=== PATIENT | male | born 1965 | race Two or more races ===

== ENCOUNTER → 2024-05-31 | Outpatient (BNVA) | payer OTHER, MEDICAID, SELFPAY | END | disposition home or self-care (01) | PROVIDERS: PCP Family Medicine; Referring Provider Family Medicine; Visit Provider Urology | DX: N40.1 Benign prostatic hyperplasia with lower urinary tract symptoms (principal); N13.8 Other obstructive and reflux uropathy; N32.81 Overactive bladder; E66.9 Obesity, unspecified; Z68.21 Body mass index [BMI] 21.0-21.9, adult | CPT/HCPCS: 81003; 99212; G0463 ==

== ENCOUNTER → 2024-10-06 | Outpatient (BNVA) | payer OTHER, MEDICAID, SELFPAY | END | disposition home or self-care (01) | PROVIDERS: PCP Family Medicine; Referring Provider Family Medicine; Visit Provider Urology | DX: N40.1 Benign prostatic hyperplasia with lower urinary tract symptoms (principal); R39.12 Poor urinary stream | CPT/HCPCS: 51741; 51798 ==

== ENCOUNTER → 2024-12-20 | Outpatient (BNVA) | payer OTHER, MEDICAID, SELFPAY | END | disposition home or self-care (01) | PROVIDERS: PCP Family Medicine; Referring Provider Family Medicine; Visit Provider Urology | DX: N40.1 Benign prostatic hyperplasia with lower urinary tract symptoms (principal); N13.8 Other obstructive and reflux uropathy; R39.198 Other difficulties with micturition | CPT/HCPCS: 76872 ==

== ENCOUNTER → 2025-05-01 | Outpatient (BNVA) | payer OTHER, MEDICAID, SELFPAY | END | disposition home or self-care (01) | PROVIDERS: PCP Family Medicine; Referring Provider Family Medicine; Visit Provider Urology | DX: N32.89 Other specified disorders of bladder (principal); N32.3 Diverticulum of bladder; N40.1 Benign prostatic hyperplasia with lower urinary tract symptoms; N13.8 Other obstructive and reflux uropathy | CPT/HCPCS: 52000; 81003; 96372; A4217; A4649; C1894; J1580; A9270 ==

== ENCOUNTER 2025-05-04 07:50 | Day surgery (SDC) | payer OTHER, MEDICAID, SELFPAY ==
[2025-05-03 10:28] VITALS: BMI 21.4
[2025-05-04] VITALS (8 sets, daily range): BP systolic 91–121; BP diastolic 48–68; PULSE 60–82; RESP 12–19; TEMP 36.4–36.5; O2SAT 99–100; BMI 21.5
[2025-05-04] MEDS: RINGERS LACTATED 500 ML 500 ML 20 ML IV (10:03)
--- NOTE | 2025-05-04 10:04 | SUR.OPER ---
0952 Pt brought into room-states needs to urinate. Attempted to walk pt to BR-very unstable. Urinal given. Pt voided.
[2025-05-04] MEDS: MIDAZOLAM INJ 1 MG/ML VIAL 2 ML (ASD USE ONLY) 2 MG IVP (10:06)
[2025-05-04] MEDS: fentaNYL CIT INJ 50 mCg/ML AMP 2ML (ASD USE ONLY) IVP (10:06)
--- NOTE | 2025-05-04 10:38 | SUR.PHASEII ---
1015 PATIENT INTO RECOVERY ROOM WITH NO ACUTE DISTRESS NOTED, V/S STABLE, PATIENT DENIES PAIN AND NAUSEA AT THIS TIME. REPORT RECEIVED FROM KAYLIN MG. 1035 PATIENT V/S REMAIN STABLE, NO COMPLAINTS OF PAIN OR NAUSEA. PATIENT ABLE TOLERATE ORAL FLUIDS - APPLEJUICE.
--- NOTE | 2025-05-04 10:50 | SUR.PHASEII ---
1050 IN PACU SPEAKING WITH PATIENT AND PATIENT'S REGARDING FINDINGS AND PLAN OF CARE. KARTHIK RN/CERTIFIED CANAL EQUIPMENT MAINTENANCE SUPERVISOR PRESENT TO TRANSLATE FOR .
--- NOTE | 2025-05-04 10:51 | SUR.PHASEII ---
1050 DISCHARGE INSTRUCTIONS GIVEN BY KARTHIK RN/CERTIFIED COORDINATOR CARDIOPULMONARY SERVICES.
== END 2025-05-04 10:54 | disposition home or self-care (01) ==
PROVIDERS: PCP Family Medicine; Referring Provider Internal Medicine Gastroenterology; Visit Provider Internal Medicine Gastroenterology
PROC: 0DBE8ZX Excision of Large Intestine, Via Natural or Artificial Opening Endoscopic, Diagnostic (ICD-10-PCS; CPT 45380; principal; 2025-05-04 09:45)
DX: K64.9 Unspecified hemorrhoids (principal); R10.84 Generalized abdominal pain; M54.9 Dorsalgia, unspecified
CPT/HCPCS: 45378; A4649; J1200; J2250; J3010; J7120